=== PATIENT | female | born 1950 | race Caucasian/White ===

== ENCOUNTER 2019-03-14 07:38 | Inpatient (IN) | payer OTHER ==
[~2019-03-14] VITALS: Ht 157.5 cm; Wt 52.2 kg
[~2019-03-14 07:38] MED LIST: PEPCID AC10 MG PO; PROTONIX20 MG PO
[2019-03-18] MEDS ORDERED: CLONAZEPAM0.5 MG PO (13:30)
[2019-03-18] MEDS ORDERED: PERCOCET 5-3251 EACH PO (13:30)
[2019-03-18] MEDS ORDERED: COLACE100 MG PO (13:30)
== END 2019-03-19 12:19 | disposition home or self-care (01) | DRG 455 ==
LOC: EDBD → SURH 03-18 05:40 → O/R 03-18 05:40 → SURH 03-18 14:24
PROVIDERS: ADMIT Orthopaedic Surgery Orthopaedic Surgery of the Spine
PROC: 0RG2071 Fusion of 2 or more Cervical Vertebral Joints with Autologous Tissue Substitute, Posterior Approach, Posterior Column, Open Approach (ICD-10-PCS; 2019-03-18)
PROC: 0RT30ZZ Resection of Cervical Vertebral Disc, Open Approach (ICD-10-PCS; 2019-03-18)
PROC: 07DS3ZZ Extraction of Vertebral Bone Marrow, Percutaneous Approach (ICD-10-PCS; 2019-03-18)
PROC: 0RG20A0 Fusion of 2 or more Cervical Vertebral Joints with Interbody Fusion Device, Anterior Approach, Anterior Column, Open Approach (ICD-10-PCS; principal; 2019-03-18 15:00)
DX: M50.021 Cervical disc disorder at C4-C5 level with myelopathy (principal); M50.022 Cervical disc disorder at C5-C6 level with myelopathy; M50.023 Cervical disc disorder at C6-C7 level with myelopathy

== ENCOUNTER 2020-01-02 06:00 | Day surgery (SDC) | payer OTHER ==
[~2020-01-02 06:00] MED LIST changes: +CLONAZEPAM0.5 MG PO; +COLACE100 MG PO; +PERCOCET 5-3251 EACH PO; +PROTONIX40 MG PO
[2020-01-02] MEDS ORDERED: PERCOCET 5-3251 EACH PO (10:00)
[2020-01-02] MEDS ORDERED: COLACE100 MG PO (10:00)
== END 2020-01-02 14:25 | disposition home or self-care (01) ==
LOC: CIR.AMB 06:00 → ADM 01-21 11:00
PROVIDERS: ATTEND Surgery
DX: K60.3 Anal fistula (principal); K62.89 Other specified diseases of anus and rectum; K64.8 Other hemorrhoids

== ENCOUNTER 2020-04-02 05:55 | Day surgery (SDC) | payer OTHER ==
[2020-04-02] MEDS ORDERED: PERCOCET 5-3251 EACH PO (15:11)
[2020-04-02] MEDS ORDERED: COLACE100 MG PO (15:11)
== END 2020-04-02 19:17 | disposition home or self-care (01) ==
LOC: CIR.AMB 05:55
PROVIDERS: ATTEND Surgery
DX: K60.3 Anal fistula (principal); Z20.828 Contact with and (suspected) exposure to other viral communicable diseases

== ENCOUNTER 2020-08-16 10:19 | Day surgery (SDC) | payer OTHER | END 2020-08-16 16:35 | disposition home or self-care (01) | LOC: AMB-ENDOS 10:19 | PROVIDERS: ATTEND Surgery | DX: K62.89 Other specified diseases of anus and rectum (principal); K64.0 First degree hemorrhoids; Z20.822 Contact with and (suspected) exposure to COVID-19 ==

== ENCOUNTER 2020-08-21 18:21 | Emergency (ER) | payer OTHER ==
[~2020-08-21] VITALS: Ht 157.5 cm; Wt 54.4 kg
== END 2020-08-21 22:20 | disposition home or self-care (01) ==
LOC: ER 18:21
DX: K91.841 Postprocedural hemorrhage of a digestive system organ or structure following other procedure (principal); Y83.8 Other surgical procedures as the cause of abnormal reaction of the patient, or of later complication, without mention of misadventure at the time of the procedure